=== PATIENT | female | born 1975 | race Asian ===

== ENCOUNTER 2017-10-31 15:52 | Emergency (ER) | payer MEDICAID ==
[2017-10-31] MEDS ORDERED: AMOX/CLAV 875 MG/125 MG TABLET PO STA (16:17)
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
[2017-10-31] MEDS ORDERED: IBUPROFEN 400 MG TABLET PO STA (16:26)
[2017-10-31 17:41] VITALS: BP 136/84
== END 2017-10-31 16:40 | disposition home or self-care (01) ==
LOC: ED 15:52
DX: S71.152A Open bite, left thigh, initial encounter (principal); W54.0XXA Bitten by dog, initial encounter
CPT/HCPCS: 99283; A9270

== ENCOUNTER 2018-01-20 17:18 | Emergency (ER) | payer MEDICAID ==
[2018-01-20 17:25] VITALS: BP 119/78
[2018-01-20] MEDS ORDERED: LOPERAMIDE 2 MG CAPSULE PO STA (17:45)
[2018-01-20] MEDS ORDERED: ONDANSETRON ODT 4 MG TABLET TL STA (17:45)
--- NOTE | 2018-01-20 17:46 | ED Physician Documentation ---
History of Present Illness - Stated complaint Stated Complaint: FLU LIKE SYMPTOMS - Chief complaint Chief Complaint: Fever - History obtained from History obtained from: Patient - History of Present Illness Timing: Other (Sick for about 48 hours with cough, vomiting, diarrhea, body aches. The cough is productive of green sputum. No measured fevers but she is having chills. Her son was Ill with a similar illness recently. She denies any possibility of .) Review of Systems Constitutional: reports: Chills, Myalgias, Fatigue Nose: reports: Rhinorrhea / runny nose Throat: denies: Sore throat Respiratory: reports: Cough. denies: Dyspnea GI: reports: Vomiting, Diarrhea. denies: Abdominal Pain PD PAST MEDICAL HISTORY - Past Medical History Past Medical History: Yes Psych: Anxiety, Post traumatic stress disorder - Past Surgical History Past Surgical History: No - Present Medications Home Medications: Ambulatory Orders Medication Instructions Recorded Confirmed No Known Home Medications [No 01/20/18 01/20/18 Known Home Medications] - Allergies Allergies/Adverse Reactions: Allergies Allergy/AdvReac Type Severity Reaction Status Date / Time No Known Drug Allergies Allergy Verified 10/31/17 16:02 - Social History Does the pt smoke?: Yes Smoking Status: Current every day smoker Does the pt drink ETOH?: Yes PD ED PE NORMAL - Vitals Vital signs reviewed: Yes - General General: Alert and oriented X 3, No acute distress - HEENT HEENT: PERRL, EOMI, Ears normal, Pharynx benign - Neck Neck: Supple, no meningeal sign, No bony TTP - Cardiac Cardiac: RRR, No murmur - Respiratory Respiratory: No respiratory distress, Clear bilaterally - Abdomen Abdomen: Non tender - Neuro Neuro: Alert and oriented X 3, Normal speech - Psych Psych: Normal mood, Normal affect Results - Vitals Vitals: Vital Signs - 24 hr 01/20/18 17:22 Temperature 36.5 C Heart Rate 92 Respiratory 20 Rate Blood Pressure 119/78 O2 Saturation 99 Oxygen O2 Source Room air - Labs Labs: Laboratory Tests 01/20/18 17:45 Influenza A (Rapid) Negative Influenza B (Rapid) Negative Influenza Types A,B Ag - - Rads (name of study) 2v chest Radiology: EMP read contemporaneously (normal) Departure - Departure Disposition: Home, Self Care Clinical Impression: Viral URI with cough Condition: Good Record reviewed to determine appropriate education?: Yes Instructions: ED Viral Syndrome Comments: Ibuprofen as needed for aches and pains, Robitussin as needed for the cough. Return if worse. Follow-up with your doctor in a week if not better. Forms: Activity restrictions
--- NOTE | 2018-01-20 18:27 | XRAY Report ---
EXAM: CHEST RADIOGRAPHY EXAM DATE: 01/20/2018 06:16 PM. CLINICAL HISTORY: Cough. COMPARISON: None. TECHNIQUE: 2 views. FINDINGS: Lungs/Pleura: Mild interstitial prominence. No definite localized infiltrate, consolidation, effusion , or pneumothorax. Mediastinum: Heart and mediastinal contours are unremarkable. Other: Bilateral breast implants. IMPRESSION: No acute disease. [facility] Referring Provider Line: [phone] SITE ID: [id number]
== END 2018-01-20 18:43 | disposition home or self-care (01) ==
LOC: ED 17:18
DX: J06.9 Acute upper respiratory infection, unspecified (principal); B97.89 Other viral agents as the cause of diseases classified elsewhere; F17.200 Nicotine dependence, unspecified, uncomplicated
CPT/HCPCS: 71046; 87275; 87276; 99283; A9270; Q0162

== ENCOUNTER 2018-08-28 19:25 | Emergency (ER) | payer MEDICAID ==
[2018-08-28 19:36] VITALS: BP 130/88
== END 2018-08-28 22:28 | disposition left against medical advice (07) ==
LOC: ED 19:25
DX: Z53.21 Procedure and treatment not carried out due to patient leaving prior to being seen by health care provider (principal)

== ENCOUNTER 2018-11-07 04:45 | Outpatient (CLI) | payer MEDICAID | END 2018-11-07 04:46 | disposition critical access hospital (66) | LOC: EMS 04:45 | PROVIDERS: ATTEND Surgery | DX: R41.0 Disorientation, unspecified (principal); S40.022A Contusion of left upper arm, initial encounter; W14.XXXA Fall from tree, initial encounter | CPT/HCPCS: A0425; A0429; A0999 ==

== ENCOUNTER 2018-11-07 05:02 | Emergency (ER) | payer MEDICAID ==
--- NOTE | 2018-11-07 06:32 | ED Physician Documentation ---
PD HPI MHE - Stated complaint Stated Complaint: CONFUSION - Chief complaint Chief Complaint: MHE - History obtained from History obtained from: Patient, EMS, Police - History of Present Illness Primary symptom: Psychosis, Manic, Off meds Timing - onset: Today Contributing factors: Sig other Similar symptoms before: Diagnosis (manic with psychosis) Recently seen: Admitted - Additional information Additional information: 43-year-old female with a history of bipolar affective disorder has been treated at [facility] with a 25-day inpatient psychiatric admission and she was discharged 4 days ago. She was treated for bobby with psychotic features and she improved over her time at [facility]. She was discharged into the care of her boyfriend Juliano and he has apparently asked the patient to leave his home. The patient went to the [facility] and she was detained by police when she was in the middle of the road in her socks waving her purse around. She was inappropriately dressed for the cold weather in the middle of the night and standing in traffic. She was detained as gravely disabled and the ambulance was summoned. The patient was discharged from [facility] on Haldol and Depakote. The police report indicates that the patient did not take her medications last night. The patient is a poor historian and wishes only to go to her appointment with her counselor at 10 AM this morning. Review of Systems Constitutional: denies: Fever Eyes: denies: Decreased vision Ears: denies: Ear pain Nose: denies: Congestion Throat: denies: Sore throat Cardiac: denies: Chest pain / pressure, Palpitations, Pedal edema Respiratory: denies: Dyspnea GI: denies: Abdominal Pain, Nausea, Vomiting, Constipation, Diarrhea : denies: Dysuria, Frequency Skin: denies: Rash Neurologic: denies: Generalized weakness, Focal weakness, Numbness Psychiatric: denies: Suicidal, Homicidal PD PAST MEDICAL HISTORY - Past Medical History Psych: Anxiety, Post traumatic stress disorder - Past Surgical History Past Surgical History: No - Present Medications Home Medications: Ambulatory Orders Medication Instructions Recorded Confirmed No Known Home Medications 01/20/18 01/20/18 - Allergies Allergies/Adverse Reactions: Allergies Allergy/AdvReac Type Severity Reaction Status Date / Time No Known Drug Allergies Allergy Verified 11/07/18 05:13 - Social History Does the pt smoke?: Yes Smoking Status: Current every day smoker Does the pt drink ETOH?: Yes PD ED PE NORMAL - Vitals Vital signs reviewed: Yes (tachy and hypertensive ) - General General: Alert and oriented X 3, No acute distress, Well developed/nourished, Other (pressured speech with accurate content crying frequently. ) - HEENT HEENT: Atraumatic, PERRL, EOMI, Other (does not allow exam of ears ) - Neck Neck: Supple, no meningeal sign, No bony TTP - Cardiac Cardiac: RRR, No murmur - Respiratory Respiratory: No respiratory distress, Clear bilaterally - Abdomen Abdomen: Soft, Non tender - Back Back: No CVA TTP, No spinal TTP - Derm Derm: Normal color, Warm and dry, No rash - Extremities Extremities: No deformity, No edema - Neuro Neuro: No motor deficit, No sensory deficit, Other (Speech is pressured tangential but with accurate content. ) Eye Opening: Spontaneous Motor: Obeys Commands Verbal: Oriented GCS Score: 15 - Psych Psych: Other (mood is effusive and the affect is labile ) Results - Vitals Vitals: Vital Signs - 24 hr 11/07/18 12:07 Temperature 36.6 C Heart Rate 84 Respiratory 15 Rate Blood Pressure 102/74 O2 Saturation 100 Oxygen O2 Source Room air - Labs Labs: Laboratory Tests 11/07/18 11/07/18 11/07/18 07:00 07:00 07:00 WBC 11.7 H RBC 3.94 L Hgb 12.5 Hct 36.5 L MCV 92.8 MCH 31.6 H MCHC 34.1 RDW 13.9 Plt Count 260 MPV 7.3 L Neut # (Auto) 6.7 H Lymph # (Auto) 3.7 H [place] # (Auto) 1.0 Eos # (Auto) 0.1 Baso # (Auto) 0.1 Absolute Nucleated RBC 0.00 Nucleated RBC % 0.0 Sodium 138 Potassium 3.4 L Chloride 101 Carbon Dioxide 24 Anion Gap 13.0 BUN 24 H Creatinine 0.7 Estimated GFR (MDRD) 91 Glucose 121 H Calcium 9.1 Total Bilirubin 0.8 AST 38 ALT 34 Alkaline Phosphatase 51 Total Protein 7.6 Albumin 4.8 Globulin 2.8 Albumin/Globulin Ratio 1.7 Lipase 22 TSH 2.15 Urine Color Urine Clarity Urine pH Ur Specific [place] Urine Protein Urine Glucose (UA) Urine Ketones Urine Occult Blood Urine Nitrite Urine Bilirubin Urine Urobilinogen Ur Leukocyte Esterase Urine RBC Urine WBC Ur Squamous Epith Cells Urine Bacteria Ur Microscopic Review Urine Culture Comments Urine HCG, Qual Salicylates Urine Opiates Screen Ur Oxycodone Screen Urine Methadone Screen Ur Propoxyphene Screen Acetaminophen Ur Barbiturates Screen Ur Tricyclics Screen Ur Phencyclidine Scrn Ur Amphetamine Screen U Methamphetamines Scrn U Benzodiazepines Scrn Urine Cocaine Screen U Cannabinoids Screen Ethyl Alcohol < 5.0 11/07/18 11/07/18 11/07/18 07:00 07:02 07:02 WBC RBC Hgb Hct MCV MCH MCHC RDW Plt Count MPV Neut # (Auto) Lymph # (Auto) [place] # (Auto) Eos # (Auto) Baso # (Auto) Absolute Nucleated RBC Nucleated RBC % Sodium Potassium Chloride Carbon Dioxide Anion Gap BUN Creatinine Estimated GFR (MDRD) Glucose Calcium Total Bilirubin AST ALT Alkaline Phosphatase Total Protein Albumin Globulin Albumin/Globulin Ratio Lipase TSH Urine Color DARK YELLOW Urine Clarity CLEAR Urine pH 6.0 Ur Specific [place] 1.025 Urine Protein 30 H Urine Glucose (UA) NEGATIVE Urine Ketones TRACE Urine Occult Blood NEGATIVE Urine Nitrite NEGATIVE Urine Bilirubin NEGATIVE Urine Urobilinogen 0.2 (NORMAL) Ur Leukocyte Esterase NEGATIVE Urine RBC 0-5 Urine WBC 0-3 Ur Squamous Epith Cells FEW Squamous Urine Bacteria Few Ur Microscopic Review INDICATED Urine Culture Comments NOT INDICATED Urine HCG, Qual NEGATIVE Salicylates < 6.0 Urine Opiates Screen NEGATIVE Ur Oxycodone Screen NEGATIVE Urine Methadone Screen NEGATIVE Ur Propoxyphene Screen NEGATIVE Acetaminophen < 10 L Ur Barbiturates Screen NEGATIVE Ur Tricyclics Screen NEGATIVE Ur Phencyclidine Scrn NEGATIVE Ur Amphetamine Screen POSITIVE H U Methamphetamines Scrn POSITIVE H U Benzodiazepines Scrn NEGATIVE Urine Cocaine Screen NEGATIVE U Cannabinoids Screen POSITIVE H Ethyl Alcohol PD MEDICAL DECISION MAKING - ED course Complexity details: reviewed old records, reviewed results, re-evaluated patient, considered differential, d/w patient ED course: 43 y/o female with a history of bipolar disorder is manic and gravely disabled. She is off of her medications and not able to make decisions for safe care of herself. At shift change care is turned over to Dr. Leija pending is an evaluation by social work or DCR. The patient is detained back to [facility]. Departure - Departure Disposition: 65 Psych Hosp/Unit DC/Xfer Clinical Impression: Gravely disabled Psychosis Qualifiers: Psychosis type: unspecified psychosis type Qualified Code(s): F29 - Unspecified psychosis not due to a substance or known physiological condition Condition: Fair Discharge Date/Time: 11/07/18 14:22
[2018-11-07 07:10] LABS: BASOPHILS # (AUTO) 0.1 10^3/uL (0.0-0.1); BASOPHILS % (AUTO) 1.1 %; EOSINOPHILS # (AUTO) 0.1 10^3/uL (0.0-0.7); EOSINOPHILS % (AUTO) 1.2 %; HGB - HEMOGLOBIN 12.5 g/dL (12.0-16.0); LYMPHOCYTES # (AUTO) 3.7 10^3/uL (1.5-3.5); LYMPHOCYTES % (AUTO) 31.7 %; MEAN CORPUSCULAR HEMOGLOBIN 31.6 pg (27.0-31.0); MEAN CORPUSCULAR HGB CONC 34.1 g/dL (32.0-36.0); MEAN CORPUSCULAR VOLUME 92.8 fL (81.0-99.0); MEAN PLATELET VOLUME 7.3 fL (7.9-10.8); MONOCYTES % (AUTO) 8.3 %; NEUTROPHILS # (AUTO) 6.7 10^3/uL (1.5-6.6); NEUTROPHILS % (AUTO) 57.7 %; PLT - PLATELET COUNT 260 10^3/uL (130-450); RED BLOOD COUNT 3.94 10^6/uL (4.20-5.40); RED CELL DISTRIBUTION WIDTH 13.9 % (12.0-15.0); WHITE BLOOD COUNT 11.7 x10^3/uL (4.8-10.8)
[2018-11-07 07:13] LABS: MUDS CUTOFF CONCENTRATIONS CUTOFF CONC BELOW:
[2018-11-07 07:17] LABS: BILIRUBIN,URINE NEGATIVE (NEGATIVE); GLUCOSE, URINE (UA) NEGATIVE (NEGATIVE); KETONES,URINE (UA) TRACE mg/dL (NEGATIVE); LEUKOCYTE ESTERASE, URINE NEGATIVE (NEGATIVE); NITRITE,URINE NEGATIVE (NEGATIVE); OCCULT BLOOD,URINE NEGATIVE (NEGATIVE); PROTEIN,URINE 30 mg/dL (NEGATIVE); UROBILINOGEN,URINE 0.2 (NORMAL) E.U./dL (NORMAL)
[2018-11-07 07:20] LABS: CLARITY,URINE CLEAR (CLEAR)
[2018-11-07 07:22] LABS: ALBUMIN 4.8 g/dL (3.2-5.5); ALBUMIN/GLOBULIN RATIO 1.7 (1.0-2.2); ALKALINE PHOSPHATASE 51 IU/L (42-121); ALT ALANINE AMINOTRANSFERASE 34 IU/L (10-60); AST ASPARTATE AMINOTRANSFERASE 38 IU/L (10-42); BILIRUBIN,TOTAL 0.8 mg/dL (0.2-1.0); BUN - BLOOD UREA NITROGEN 24 mg/dL (6-20); CALCIUM 9.1 mg/dL (8.5-10.3); CARBON DIOXIDE - CO2 24 mmol/L (21-32); CHLORIDE 101 mmol/L (101-111); CREATININE 0.7 mg/dL (0.4-1.0); GFR - MDRD 91 (>89); GLUCOSE 121 mg/dL (70-100); LIPASE 22 U/L (22-51); SODIUM 138 mmol/L (135-145); TOTAL PROTEIN 7.6 g/dL (6.7-8.2)
[2018-11-07 07:27] LABS: AMPHETAMINE SCREEN,URINE POSITIVE (NEGATIVE); BENZODIAZEPINES SCREEN, URINE NEGATIVE (NEGATIVE); COCAINE SCREEN URINE NEGATIVE (NEGATIVE); METHADONE SCREEN, URINE NEGATIVE (NEGATIVE); METHAMPHETAMINES SCREEN, URINE POSITIVE (NEGATIVE); OPIATE SCREEN, URINE NEGATIVE (NEGATIVE); OXYCODONE SCREEN, URINE NEGATIVE (NEGATIVE); PROPOXYPHENE SCREEN, URINE NEGATIVE (NEGATIVE); TRICYCLIC ANTIDEPRESSANT,URINE NEGATIVE (NEGATIVE)
[2018-11-07 07:28] LABS: HCG UR QUAL NEGATIVE
[2018-11-07 07:43] LABS: ACETAMINOPHEN < 10 ug/mL (10-30); SALICYLATE < 6.0 mg/dL
[2018-11-07 07:45] LABS: BACTERIA,URINE Few /HPF (None Seen); RBC,URINE 0-5 /HPF (0-5); SQUAMOUS EPITHELIAL CELL,UR FEW Squamous (<= Few)
--- NOTE | 2018-11-07 07:54 | ED Physician Documentation ---
History of Present Illness - Stated complaint Stated Complaint: CONFUSION - Chief complaint Chief Complaint: MHE - Additonal information Additional information: hx from pt and night worker and [facility] records 43 f per [facility] has PTSD ADHD and was recently admitted for 25 days for psychotic disorder possible bipolar with bobby and psychotic features she was brought in by police last night after being found in the road speaking inchorently no trauma was reported pt was seen by night worker Dr Zuniga, examined and MHE labs were ordered and are presently pending I went to see the pt she is agitated and continued to get in and out of bed and tech states she urinated on the floor she is able to be calmed and asked to sit in the bed and allowed me to examine her she denies any pain she denies any fever cough [place] PD PAST MEDICAL HISTORY - Past Medical History Psych: Anxiety, Post traumatic stress disorder - Past Surgical History Past Surgical History: No - Present Medications Home Medications: Ambulatory Orders Medication Instructions Recorded Confirmed No Known Home Medications 01/20/18 01/20/18 - Allergies Allergies/Adverse Reactions: Allergies Allergy/AdvReac Type Severity Reaction Status Date / Time No Known Drug Allergies Allergy Verified 11/07/18 05:13 - Social History Does the pt smoke?: Yes Smoking Status: Current every day smoker Does the pt drink ETOH?: Yes Results - Vitals Vitals: Vital Signs - 24 hr 11/07/18 11/07/18 05:03 12:07 Temperature 36.4 C L 36.6 C Heart Rate 103 H 84 Respiratory 20 15 Rate Blood Pressure 121/95 H 102/74 O2 Saturation 100 100 Oxygen O2 Source Room air - Labs Labs: Laboratory Tests 11/07/18 11/07/18 11/07/18 07:00 07:00 07:00 WBC 11.7 H RBC 3.94 L Hgb 12.5 Hct 36.5 L MCV 92.8 MCH 31.6 H MCHC 34.1 RDW 13.9 Plt Count 260 MPV 7.3 L Neut # (Auto) 6.7 H Lymph # (Auto) 3.7 H [place] # (Auto) 1.0 Eos # (Auto) 0.1 Baso # (Auto) 0.1 Absolute Nucleated RBC 0.00 Nucleated RBC % 0.0 Sodium 138 Potassium 3.4 L Chloride 101 Carbon Dioxide 24 Anion Gap 13.0 BUN 24 H Creatinine 0.7 Estimated GFR (MDRD) 91 Glucose 121 H Calcium 9.1 Total Bilirubin 0.8 AST 38 ALT 34 Alkaline Phosphatase 51 Total Protein 7.6 Albumin 4.8 Globulin 2.8 Albumin/Globulin Ratio 1.7 Lipase 22 TSH 2.15 Urine Color Urine Clarity Urine pH Ur Specific [place] Urine Protein Urine Glucose (UA) Urine Ketones Urine Occult Blood Urine Nitrite Urine Bilirubin Urine Urobilinogen Ur Leukocyte Esterase Urine RBC Urine WBC Ur Squamous Epith Cells Urine Bacteria Ur Microscopic Review Urine Culture Comments Urine HCG, Qual Salicylates Urine Opiates Screen Ur Oxycodone Screen Urine Methadone Screen Ur Propoxyphene Screen Acetaminophen Ur Barbiturates Screen Ur Tricyclics Screen Ur Phencyclidine Scrn Ur Amphetamine Screen U Methamphetamines Scrn U Benzodiazepines Scrn Urine Cocaine Screen U Cannabinoids Screen Ethyl Alcohol < 5.0 11/07/18 11/07/18 11/07/18 07:00 07:02 07:02 WBC RBC Hgb Hct MCV MCH MCHC RDW Plt Count MPV Neut # (Auto) Lymph # (Auto) [place] # (Auto) Eos # (Auto) Baso # (Auto) Absolute Nucleated RBC Nucleated RBC % Sodium Potassium Chloride Carbon Dioxide Anion Gap BUN Creatinine Estimated GFR (MDRD) Glucose Calcium Total Bilirubin AST ALT Alkaline Phosphatase Total Protein Albumin Globulin Albumin/Globulin Ratio Lipase TSH Urine Color DARK YELLOW Urine Clarity CLEAR Urine pH 6.0 Ur Specific [place] 1.025 Urine Protein 30 H Urine Glucose (UA) NEGATIVE Urine Ketones TRACE Urine Occult Blood NEGATIVE Urine Nitrite NEGATIVE Urine Bilirubin NEGATIVE Urine Urobilinogen 0.2 (NORMAL) Ur Leukocyte Esterase NEGATIVE Urine RBC 0-5 Urine WBC 0-3 Ur Squamous Epith Cells FEW Squamous Urine Bacteria Few Ur Microscopic Review INDICATED Urine Culture Comments NOT INDICATED Urine HCG, Qual NEGATIVE Salicylates < 6.0 Urine Opiates Screen NEGATIVE Ur Oxycodone Screen NEGATIVE Urine Methadone Screen NEGATIVE Ur Propoxyphene Screen NEGATIVE Acetaminophen < 10 L Ur Barbiturates Screen NEGATIVE Ur Tricyclics Screen NEGATIVE Ur Phencyclidine Scrn NEGATIVE Ur Amphetamine Screen POSITIVE H U Methamphetamines Scrn POSITIVE H U Benzodiazepines Scrn NEGATIVE Urine Cocaine Screen NEGATIVE U Cannabinoids Screen POSITIVE H Ethyl Alcohol PD MEDICAL DECISION MAKING - ED course ED course: pt req a nocotine patch I suggested zyprexa and ativan and was also going to order PO potassium - but she refuses to take those meds she is agitated and psychotic but not aggressive seen by RAHAT deferred to DCR DCR found pt psychotic and gravely disabled bed at [facility] pt detained she then took PO meds as requested COBRas complete and pt transferred Departure - Departure Disposition: 65 Psych Hosp/Unit DC/Xfer Clinical Impression: Gravely disabled Psychosis Qualifiers: Psychosis type: unspecified psychosis type Qualified Code(s): F29 - Unspecified psychosis not due to a substance or known physiological condition Condition: Fair Discharge Date/Time: 11/07/18 14:22
[2018-11-07] MEDS ORDERED: LORazepam 0.5 MG TABLET PO STA ×2 (07:59→12:48)
[2018-11-07] MEDS ORDERED: OLANZapine ODT 5 MG TABLET TL STA ×2 (07:59→12:48)
[2018-11-07] MEDS ORDERED: NICOTINE 7 MG PATCH TOP SCH (09:00)
[2018-11-07 12:08] VITALS: BP 102/74
[2018-11-07] MEDS ORDERED: POTASSIUM CHLORIDE 20 MEQ TABLET PO STA (12:48)
== END 2018-11-07 14:22 ==
LOC: EDUNIT# → ED 05:02
DX: F79 Unspecified intellectual disabilities (principal); F29 Unspecified psychosis not due to a substance or known physiological condition; F31.9 Bipolar disorder, unspecified; F43.10 Post-traumatic stress disorder, unspecified; F17.200 Nicotine dependence, unspecified, uncomplicated
CPT/HCPCS: 36415; 80053; 80306; 80307; 80320; 80329; 81001; 81025; 83690; 84443; 85025; 99284; A9270; 81003; 87086

== ENCOUNTER 2018-11-07 14:26 | Outpatient (CLI) | payer MEDICAID | END 2018-11-07 14:27 | disposition short-term general hospital (02) | LOC: EMS 14:26 | PROVIDERS: ATTEND Surgery | DX: F29 Unspecified psychosis not due to a substance or known physiological condition (principal) | CPT/HCPCS: A0425; A0428; A0999 ==